=== PATIENT | male | born 1935 | race Caucasian/White ===

== ENCOUNTER 2019-04-24 12:59 | Emergency (ER) | payer OTHER ==
[2019-04-24 13:37] VITALS: PULSE 77; TEMP 97.8; BMI 19.5
--- NOTE | 2019-04-24 13:37 | PDOC ---
Rapid Medical Evaluation Time Seen by Provider: 04/24/19 13:32 Medical Evaluation: 04/24/19 13:32 This patient had a rapid evaluation in triage cc: s/p fall HPI: Patient reports trip and fall in house. Denies dizziness before or after fall Denies loc, nausea or vomiting. Complaining of pain in head sustained laceration to top of head PE: awake and oriented x 3 HEENT: PERRLA unlabored breathing neuro: EOMI, tongue midline, no facial drooping mskl: no mid cervical tenderness, neck supple Orders: head ct This patient will proceed to main ed for further evaluation Discharge Disposition - Diagnosis Minor head injury - Referrals - Patient Instructions - Post Discharge Activity
[2019-04-24] MEDS ORDERED: LIDOCAINE HCL/EPINEPHRINE/PF 10 ML VIAL IM ONE (14:20)
--- NOTE | 2019-04-24 15:07 | PDOC ---
Attending Attestation - Resident Resident Name: Summer Denton - HPI HPI: 04/24/19 17:32 Pt presents to the ED after mechanical trip and fall with laceration to the head. DENies LOC. - Physicial Exam PE: 04/24/19 17:32 Agree with resident exam. HEENT: + small actively bleeding laceration on top of scalp. Neck: no spinous process tenderness, step off or deformity. - Medical Decision Making 04/24/19 17:34 Pt presents to the ED complaining of scalp laceration after mechanical trip and fall. Ct head performed to rule out intracranial bleed and is negative. Laceration repaired in the ED. Will discharge home with instructions to return to the ED immediately for worsening symptom.s.
--- NOTE | 2019-04-24 15:10 | PDOC ---
History of Present Illness - General Chief Complaint: Injury Stated Complaint: FALL Time Seen by Provider: 04/24/19 13:32 - History of Present Illness Initial Comments: 04/24/19 15:11 84 y/o M with PMH of GBS in , [place] with stent placement in , CHF since, history of C diff, GERD and colitis who presents to the ED s/p fall this morning. pt was walking around apartment when he split on his dog mat and fell hitting his head against the wall mirror. Pt denies any precipitating symptoms such as blurry vision, chest pain, palpitation, SOB, N/V. He denies any LOC prior or post fall. Son was able to assist with getting up and pt was ambulating normally with his cane afterwards. Pt denies being on any form of blood thinner except for aspirin. He also denies prior episodes. Last tetanus shot 2 years ago for left eye lac s/p syncope from excess heat PMH: as above PSH: lumbar back surgery , surgery to repair cardiac cath vein x2 , cholecystectomy Meds: lisinopril 10mg/d, metoprolol 50mg/d, ASA 81mg/d, nexium 40mg 1 every 3 days Social Hx: 2-3 beers a day, non smoker, no illicit drug use ROS: Constitutional: no fever, chills HEENT: no throat pain, no dysphagia Cardiovascular: no chest pain, no palpitations Respiratory: no cough, no shortness of breath Gastrointestinal: no Nausea, no vomiting Genitourinary: no urgency no frequency Musculoskeletal: no myalgia, no arthralgia Skin: Head bruising with blood collection under Neurologic: no weakness Psych: no agitation, no anxiety PE: VSS but temp of 101 at PCP office and 99F in ED GEN: NAD Neuro: CN 2-12 intact, motor strength 5/5 in all muscle groups, sensation intact throughout, 2+ reflexes in U&L extremities, gait normal HEENT: PERRLA, moist membrane, clear conjunctiva NECK: no JVD CHEST:vesicular breath sounds b/l no wheezing, no rales appreciated HEART:RRR, no murmur, rubs or gallop ABDOMEN: + BS, soft, NTND Extremities: 2+ pulses, no edema SKIN: scalp laceration with hematoma MSK: no arthralgia, no joint tenderness Assessment: Head CT w/o contrast to rule out bleed, lac suture 04/24/19 15:[address] negative for intracranial bleeding. pt continues to offer no headache, change in vision, FND. will discharge with return in 6-7 days for suture removal and with strict return instruction Past History - Past Medical History Allergies/Adverse Reactions: Allergies Allergy/AdvReac Type Severity Reaction Status Date / Time uncoated ASA AdvReac Uncoded 04/24/19 14:17 Home Medications: Ambulatory Orders Aspirin Coated [Ecotrin -] 81 mg PO DAILY 04/24/19 Esomeprazole Magnesium [Nexium 24Hr] 40 mg PO ASDIR 04/24/19 Lisinopril [Zestril] 10 mg PO DAILY 04/24/19 Metoprolol Succinate [Toprol Xl -] 50 mg PO DAILY 04/24/19 COPD: No Other medical history: guillian [place], c diff in past, colitis, pancreatitis - Surgical History Cardiac Surgery: Yes (stent, repair cath vein) Cholecystectomy: Yes - Psycho Social/Smoking Cessation Hx Smoking History: Never smoked Information on smoking cessation initiated: No Hx Alcohol Use: No Drug/Substance Use Hx: No *Physical Exam - Vital Signs Last Vital Signs Temp Pulse Resp BP Pulse Ox 97.8 F 77 16 175/85 H 98 04/24/19 13:33 04/24/19 13:33 04/24/19 13:33 04/24/19 13:33 04/24/19 13:33 Discharge - Discharge Information Problems reviewed: Yes Clinical Impression/Diagnosis: Minor head injury Qualifiers: Encounter type: initial encounter Qualified Code(s): S09.90XA - Unspecified injury of head, initial encounter Condition: Improved Disposition: HOME - Admission No - Follow up/Referral Referrals: Jude Richardson [Primary Care Provider] - Call tomorrow - Patient Discharge Instructions Patient Printed Discharge Instructions: DI for Laceration Repair of the Scalp, How to Prevent Falls, DI for Closed Head Injury Additional Instructions: You came into the ED after a fall. We examined you and scanned your head; Your head scan was negative for bleeding in the brain. Your examination however showed a small scalp laceration with hematoma underneath; We sutured the laceration and placed 2 tenzin to stop the superficial bleeding. Please return to the emergency room on 05/01/2019 to get the suture and tenzin removed. Also follow the discharge instruction for your laceration repair care and ect. If you begin to experience worsening headache, bleeding, dizziness, weakness in your arms or legs, numbness anywhere on your body, change in vision, fevers please return to the emergency room immediately. - Post Discharge Activity
[2019-04-24] MEDS ORDERED: LIDOCAINE HCL 2% (50ML VIAL) SQ ONE (15:38)
[2019-04-24] MEDS ORDERED: LIDOCAINE HCL 2% (20ML MULTI-DOSE VIAL) ONE (15:40)
[2019-04-24] MEDS ORDERED: DIPHTH,PERTUSS(ACELL),TET 0.5 ML DISP.SYRIN IM ONE (15:43)
[2019-04-24] MEDS ORDERED: LIDOCAINE 1%/EPI 1:100000 (20 ML MULTI DOSE VIAL) ONE (16:01)
[2019-04-24 16:43] VITALS: BP 162/70
== END 2019-04-24 16:43 | disposition home or self-care (01) ==
LOC: JER 12:59
PROC: 0HQ0XZZ Repair Scalp Skin, External Approach (ICD-10-PCS; principal; 2019-04-24)
PROC: 3E023BZ Introduction of Anesthetic Agent into Muscle, Percutaneous Approach (ICD-10-PCS; 2019-04-24)
DX: S01.01XA Laceration without foreign body of scalp, initial encounter (principal); W01.198A Fall on same level from slipping, tripping and stumbling with subsequent striking against other object, initial encounter; Y93.89 Activity, other specified; Y92.038 Other place in apartment as the place of occurrence of the external cause; Y99.8 Other external cause status; R50.9 Fever, unspecified; I25.10 Atherosclerotic heart disease of native coronary artery without angina pectoris; I11.0 Hypertensive heart disease with heart failure; Z95.5 Presence of coronary angioplasty implant and graft; I50.9 Heart failure, unspecified; I25.2 Old myocardial infarction; K21.9 Gastro-esophageal reflux disease without esophagitis; Z87.19 Personal history of other diseases of the digestive system; Z86.19 Personal history of other infectious and parasitic diseases; Z79.82 Long term (current) use of aspirin; Z90.49 Acquired absence of other specified parts of digestive tract
CPT/HCPCS: 12001-25; 70450-TC; 96372; 99284-25